=== PATIENT | male | born 1980 ===

== ENCOUNTER 2017-06-24 10:09 | Emergency (ER) | payer MEDICAID ==
[2017-06-24 10:16] VITALS: RESP 18
[2017-06-24] MEDS ORDERED: Oxycodone/Acetaminophen 5/325 mg Tab PO STA (11:10)
[2017-06-24] MEDS ORDERED: Lidocaine 1% Inj (20ml) INFIL STA (11:10)
[2017-06-24] MEDS ORDERED: Bacitracin 500 Units/gm Oint Foilpak UD TOP STA (11:10)
[2017-06-24] MEDS ORDERED: Tetanus/Diphtheria Toxoids 0.5 ml Syringe IM ONE ×2 (11:10→11:16)
[2017-06-24] MEDS ORDERED: Bacitracin 500 Units/gm Oint Foilpak UD ONE (11:16)
[2017-06-24] MEDS ORDERED: Oxycodone/Acetaminophen 5/325 mg Tab ONE (11:16)
[2017-06-24] MEDS ORDERED: Lidocaine 1% MPF (30 ml) Inj INFIL STA (11:22)
--- NOTE | 2017-06-24 11:38 | RAD ---
PROCEDURE: Left small finger radiographs. HISTORY: injury COMPARISON: None. TECHNIQUE: AP radiograph of the left hand, as well as spot oblique and lateral images of left small finger were obtained. FINDINGS: LEFT SMALL FINGER: A chip or avulsion fractures identified at the tuft of the distal phalanx left small finger with minimal distal distraction. Remainder of the left hand (as seen on the AP view) is grossly unremarkable. JOINTS: Normal. SOFT TISSUES: Mild soft tissue edema is seen related to the did tuft fracture distal phalanx left small finger, primarily volar and distribution. OTHER FINDINGS: None. IMPRESSION: Tiny minimally displaced tuft fracture of the distal phalanx left small finger with local volar soft tissue edema identified. No dislocation.
--- NOTE | 2017-06-24 12:50 | C.PDOC ---
History Of Present Illness 36 y/o male presents to the ED for evaluation of lacerations to left fingers, sustained today. Patient states he was helping move furniture and the left 4th and 5th fingers became pinned between the dresser and a wall. No changes in sensation. Patient is able to move all digits. Time Seen by Provider: 06/24/17 11:10 Chief Complaint (Nursing): Finger,Hand,&Wrist History Per: Patient History/Exam Limitations: no limitations Onset/Duration Of Symptoms: Hrs Current Symptoms Are (Timing): Still Present Past Medical History Reviewed: Historical Data, Nursing Documentation, Vital Signs Vital Signs: Last Vital Signs Temp 98.2 F 06/24/17 13:04 Pulse 72 06/24/17 13:04 Resp 18 06/24/17 13:04 BP 128/84 06/24/17 13:04 Pulse Ox 100 06/24/17 13:15 - Medical History PMH: No Chronic Diseases Surgical History: No Surg Hx Family History: States: No Known Family Hx - Social History Hx Tobacco Use: Yes Hx Alcohol Use: No Hx Substance Use: No - Immunization History Hx Tetanus Toxoid Vaccination: No Hx Influenza Vaccination: No Hx Pneumococcal Vaccination: No Review Of Systems Except As Marked, All Systems Reviewed And Found Negative. Skin: Positive for: Lesions (to left 4th and 5th digits) Neurological: Negative for: Weakness, Numbness Physical Exam - Physical Exam Appears: Non-toxic, No Acute Distress Skin: Normal Color, Warm, Dry Extremity: Normal ROM, Capillary Refill (< 2 sec), Other (2 cm vertical laceration at distal phalanx of 5th digit, volar surface, tender to palpation. Subcutaneous tissue is exposed. 4th digit with abrasion to the volar and dorsal surfaces of middle phalanx, non-tender.) Pulses: Left Radial: Normal, Right Radial: Normal Neurological/Psych: Oriented x3, Normal Speech ED Course And Treatment O2 Sat by Pulse Oximetry: 100 (RA) Pulse Ox Interpretation: Normal - Other Rad x-ray left hand X-Ray: Viewed By Me, Read By Radiologist Interpretation: FINDINGS: LEFT SMALL FINGER: A chip or avulsion fractures identified at the tuft of the distal phalanx left small finger with minimal distal distraction. Remainder of the left hand (as seen on the AP view) is grossly unremarkable. JOINTS: Normal. SOFT TISSUES: Mild soft tissue edema is seen related to the did tuft fracture distal phalanx left small finger, primarily volar and distribution. OTHER FINDINGS: None. IMPRESSION: Tiny minimally displaced tuft fracture of the distal phalanx left small finger with local volar soft tissue edema identified. No dislocation. Laceration - Laceration Repair 5th digit Wound Length (In cm): 2 Description Of Wound: Linear Wound Cleansed With: Sterile Saline Anesthesia: Lidocaine 1% Wound Examination: Irrigated With Saline, No FB With Wound Exploration Wound Debridement/Revision: Wound Margins Revised Wound Closure: Suture (x5) Suture Technique And Material Used: Interrupted, Nylon (3:0) Wound Complexity: Simple Medical Decision Making Medical Decision Making: Initial Plan: --X-Ray left hand --Percocet 1 tab PO --Lidocaine 1% used for digital block for laceration repair Patient tolerated procedure well. Tetanus booster given in the ED. Bacitracin applied to abrasions on 4th digit. Patient will be discharged home with Keflex. Discussed wound care instructions, all questions answered. Advised to follow up in 3 days for wound check. Disposition - Disposition Referrals: Alin Magallanes MD [Staff Provider] - Disposition: HOME/ ROUTINE Disposition Time: 12:48 Condition: STABLE Additional Instructions: Follow up with Hand specialist within 2-3 days. Return to ED if feel worse. Prescriptions: Cephalexin [Keflex] 500 mg PO Q6 #20 cap Instructions: Laceration Repair With Stitches (DC), Finger Fracture (DC) Forms: [facility] (Canadian) - Clinical Impression Clinical Impression: Finger laceration, Closed fracture of tuft of distal phalanx of finger - PA / NEEDLE LEADER / Resident Statement MD/DO has reviewed & agrees with the documentation as recorded. - Scribe Statement The provider has reviewed the documentation as recorded by the Scribe (Nelda Garcia) All medical record entries made by the Scribe were at my direction and personally dictated by me. I have reviewed the chart and agree that the record accurately reflects my personal performance of the history, physical exam, medical decision making, and the department course for this patient. I have also personally directed, reviewed, and agree with the discharge instructions and disposition.
[2017-06-24 13:04] VITALS: BP 128/84; PULSE 72; TEMP 98.2
[2017-06-24 13:06] VITALS: O2SAT 100
== END 2017-06-24 13:07 | disposition home or self-care (01) ==
LOC: C.ER 10:09
DX: S61.217A Laceration without foreign body of left little finger without damage to nail, initial encounter (principal); S62.637A Displaced fracture of distal phalanx of left little finger, initial encounter for closed fracture; W23.0XXA Caught, crushed, jammed, or pinched between moving objects, initial encounter; Z23 Encounter for immunization

== ENCOUNTER 2017-06-27 12:21 | Emergency (ER) | payer MEDICAID ==
[2017-06-27 12:25] VITALS: BP 148/80; PULSE 68; RESP 16; TEMP 97.9; O2SAT 98
--- NOTE | 2017-06-27 12:36 | C.PDOC ---
History Of Present Illness 37-year-old male, presents to the emergency department for wound check. Patient seen in ED on 06/24 for finger injury. Patient had sutures placed and xr that showed a fracture. Patient was discharged and instructed to return today for wound check. Denies any new symptoms or pain. No fever. Time Seen by Provider: 06/27/17 12:28 Chief Complaint (Nursing): Wound Check History Per: Patient History/Exam Limitations: no limitations Onset/Duration Of Symptoms: Days Ago (3) Current Symptoms Are (Timing): Better Past Medical History Reviewed: Historical Data, Nursing Documentation, Vital Signs Vital Signs: Last Vital Signs Temp 97.9 F 06/27/17 12:22 Pulse 68 06/27/17 12:22 Resp 16 06/27/17 12:22 BP 148/80 06/27/17 12:22 Pulse Ox 98 06/27/17 13:16 Family History: States: No Known Family Hx - Social History Hx Tobacco Use: Yes Hx Alcohol Use: No Hx Substance Use: No - Immunization History Hx Tetanus Toxoid Vaccination: No Hx Influenza Vaccination: No Hx Pneumococcal Vaccination: No Review Of Systems Constitutional: Negative for: Fever Neurological: Negative for: Weakness, Numbness Physical Exam - Physical Exam Appears: Well, Non-toxic, No Acute Distress Skin: Normal Color, Warm, Dry, No Rash Extremity: Other (Left 5th digit: five sutures in place to volar surface. No discharge, warmth, signs sx of infection) ED Course And Treatment O2 Sat by Pulse Oximetry: 98 (RA) Pulse Ox Interpretation: Normal Medical Decision Making Medical Decision Making: Prior Visits Notes and records from previous visits were reviewed. patient seen in ED on and had XR which showed: Tiny minimally displaced tuft fracture of the distal phalanx left small finger with local volar soft tissue edema identified. No dislocation. Patient had sutures placed to finger, and he was discharged. Disposition Counseled Patient/Family Regarding: Diagnosis, Need For Followup - Disposition Referrals: YOUR,HAND SURGEON [Other] Disposition: HOME/ ROUTINE Disposition Time: 12:45 Condition: IMPROVED Additional Instructions: FOLLOW UP WITH YOUR HAND SURGEON OF CHOICE FOR POSSIBLE SUTURE REMOVAL, FRACTURE REEVALUATION BY 07/01. COMPLETE CURRENT ANTIBIOTICS PRESCRIBED. Instructions: Laceration Repair With Stitches (DC) Forms: General Discharge Instructions, [facility] (Armenian), Work Excuse - Clinical Impression Clinical Impression: Encounter for evaluation of wound - Scribe Statement The provider has reviewed the documentation as recorded by the Scribe (Yonas Ariza) All medical record entries made by the Scribe were at my direction and personally dictated by me. I have reviewed the chart and agree that the record accurately reflects my personal performance of the history, physical exam, medical decision making, and the department course for this patient. I have also personally directed, reviewed, and agree with the discharge instructions and disposition. Orthopedic Care Application Of:: Finger Splint
[2017-06-27] MEDS ORDERED: Bacitracin 500 Units/gm Oint Foilpak UD ONE (13:03)
== END 2017-06-27 13:03 | disposition home or self-care (01) ==
LOC: C.ER 12:21
DX: Z48.00 Encounter for change or removal of nonsurgical wound dressing (principal)